=== PATIENT | female | born 1995 | race Caucasian/White ===

== ENCOUNTER 2021-07-20 06:21 | Inpatient (IN) ==
[2021-07-20] MEDS ORDERED: MEPERIDINE 50 MG/1 ML VIAL IV PRN (07:41)
[2021-07-20] MEDS ORDERED: LIDOCAINE 1% 50 ML VIAL MISC INJ ONE (07:41)
[2021-07-20] MEDS ORDERED: BUTORPHANOL 2 MG/ML VIAL IV PRN (07:41)
[2021-07-20] MEDS ORDERED: ONDANSETRON 4 MG/2 ML VIAL IV PRN ×2 (07:41→18:44)
[2021-07-20] MEDS ORDERED: LACTATED RINGERS 1,000 ML IV SCH (08:00)
[2021-07-20] MEDS ORDERED: OXYTOCIN/LR 20 UNIT/1,000 ML BAG IV SCH (08:00)
[2021-07-20 08:01] LABS: Basophils # 0.1 10*3/uL (0.0-0.2); Basophils % 0.5 % (0.0-0.8); Eosinophils # 0.1 10*3/uL (0.0-0.87); Eosinophils % 0.4 % (0.00-10.9); Hematocrit 39.3 VOL% (35.7-47.0); Hemoglobin 13.1 GM/DL (12.0-16.0); Immature Granulocytes % 2.7 %; Immature Granulocytes Absolute 0.34 #; Lymphocytes # 1.7 10*3/uL (1.4-4.0); Lymphocytes % 13.2 % (21.3-54.2); Mean Corpuscular HGB Conc 33.3 GM/DL (32-36); Mean Corpuscular Volume 87.3 FL (87-102); Mean Platelet Volume 10.8 FL (9.6-12.0); Monocytes % 7.3 % (1.7-12.7); Neutrophils % 75.9 % (38.7-73.9); Platelet Count 296 T/CUMM (130-400); Red Cell Distribution Width 14.8 % (9.3-17.3); White Blood Count 12.8 T/CUMM (4-12)
[2021-07-20 08:23] LABS: Albumin 2.8 G/DL (3.4-5.0); Bilirubin,Total 0.7 MG/DL (0.20-1.00); Calcium 9.1 MG/DL (8.5-10.1); Osmolality,Calculated 269.7 MOS/KG (273-304); Potassium 3.5 MMOL/L (3.5-5.1); Total Protein 7.1 G/DL (6.4-8.2)
[2021-07-20] MEDS ORDERED: hydrOXYzine HCL 25 MG/1 ML VIAL IM PRN (08:50)
[2021-07-20] MEDS ORDERED: LACTATED RINGERS 1,000 ML IV ONE (08:50)
[2021-07-20] MEDS ORDERED: PROMETHAZINE 25 MG/1 ML VIAL IM ONE (08:50)
[2021-07-20] MEDS ORDERED: diphenhydrAMINE 50 MG/1 ML VIAL IV PRN ×2 (08:50)
[2021-07-20] MEDS ORDERED: FAMOTIDINE 20 MG/2 ML VIAL IV ONE (08:50)
[2021-07-20] MEDS ORDERED: CITRIC ACID/SODIUM CITRATE 30 ML UDCUP PO ONE (08:50)
[2021-07-20] MEDS ORDERED: ePHEDrine 50 MG/ML VIAL IV PRN (08:50)
[2021-07-20] MEDS ORDERED: NALOXONE 0.4 MG/ML VIAL IV PRN (08:50)
[2021-07-20] MEDS: fentaNYL 2 MCG/ROPIV 0.2% EPID 100 ML EPIDURAL SCH ×2 (10:09→16:00)
[2021-07-20 13:13] LABS: Bilirubin,Urine Negative (Negative); Blood, Urine Negative (Negative); Glucose,Urine (UA) Negative (Negative); Ketones,Urine 5 mg/dL (Negative); Mucus,Urine Occasional /LPF (Occasional); Nitrite,Urine Negative (Negative); Protein,Urine Negative; RBC,Urine <1 /HPF (0-4); Squamous Epithelial Cell,Urine Occasional /HPF (0-10); Urine Appearance CLEAR (Clear); Urine Color Yellow (Yellow); Urine Specific Gravity 1.008 (1.001-1.035); Urine Urobilinogen < 2.0 EU/DL (0.2-1.0)
[2021-07-20] MEDS ORDERED: SODIUM CHLORIDE 0.9% 100 ML IV ONE (18:04)
[2021-07-20] MEDS ORDERED: miSOPROStoL 200 MCG TABLET ONE (18:04)
[2021-07-20] MEDS ORDERED: TRANEXAMIC ACID 1,000 MG/10 ML VIAL ONE (18:04)
[2021-07-20] MEDS ORDERED: CARBOPROST TROMETHAMINE 250 MCG/ML AMP IM ONE (18:05)
[2021-07-20] MEDS ORDERED: METHYLERGONOVINE 0.2 MG/1 ML AMP ONE (18:05)
[2021-07-20] MEDS ORDERED: RHO(D) IMMUNE GLOBULIN 300 MCG SYRINGE IM ONE (18:44)
[2021-07-20] MEDS ORDERED: LANOLIN 50% CREAM 0.3 OZ TUBE TOP PRN (18:44)
[2021-07-20] MEDS ORDERED: WITCH HAZEL PADS 100/JAR TOP PRN (18:44)
[2021-07-20] MEDS ORDERED: OXYTOCIN/LR 20 UNIT/1,000 ML BAG IV ONE (18:44)
[2021-07-20] MEDS ORDERED: MEASLES/MUMPS/RUBELLA VACCINE 0.5 ML VIAL SUBCUT ONE (18:44)
[2021-07-20] MEDS ORDERED: BISACODYL 10 MG SUPP RECTAL PRN (18:44)
[2021-07-20] MEDS ORDERED: DIPH/TET/ACEL PERT BOOSTER VACCINE 0.5 ML VIAL IM ONE (18:44)
[2021-07-20] MEDS ORDERED: ACETAMINOPHEN 325 MG TABLET PO PRN (18:44)
[2021-07-20] MEDS ORDERED: oxyCODONE/ACETAMINOPHEN 5-325 MG TABLET PO PRN (18:44)
[2021-07-20] MEDS ORDERED: HYDROCORTISONE 2.5% RECTAL CREAM 30 GM TUBE TOP PRN (18:44)
[2021-07-20] MEDS ORDERED: BENZOCAINE 20%/MENTHOL 0.5% SPRAY 56 GM CAN TOP PRN (18:44)
[2021-07-20 18:49] LABS: Cord Arterial Blood HCO3 16.6 MMOL/L
[2021-07-20 18:50] LABS: Cord Venous Blood HCO3 19.8 MMOL/L; Cord Venous Blood PCO2 43.4 MMHG; Cord Venous Blood PO2 21.2 MMHG
[2021-07-21 07:23] LABS: Basophils # 0.1 10*3/uL (0.0-0.2); Basophils % 0.5 % (0.0-0.8); Eosinophils # 0.1 10*3/uL (0.0-0.87); Eosinophils % 0.5 % (0.00-10.9); Hematocrit 36.3 VOL% (35.7-47.0); Hemoglobin 11.9 GM/DL (12.0-16.0); Immature Granulocytes % 1.6 %; Immature Granulocytes Absolute 0.26 #; Lymphocytes # 1.8 10*3/uL (1.4-4.0); Lymphocytes % 10.9 % (21.3-54.2); Mean Corpuscular HGB Conc 32.8 GM/DL (32-36); Mean Corpuscular Volume 88.8 FL (87-102); Mean Platelet Volume 10.5 FL (9.6-12.0); Monocytes % 6.7 % (1.7-12.7); Neutrophils % 79.8 % (38.7-73.9); Platelet Count 225 T/CUMM (130-400); Red Blood Count 4.09 MC/CUMM (3.8-5.5); Red Cell Distribution Width 14.8 % (9.3-17.3); White Blood Count 16.4 T/CUMM (4-12)
[2021-07-21] MEDS: DOCUSATE SODIUM 100 MG CAPSULE PO SCH ×3 (07:32→22:32)
[2021-07-21] MEDS: oxyCODONE/ACETAMINOPHEN 5-325 MG TABLET PO PRN ×2 (08:33→20:01)
[2021-07-21] MEDS: IBUPROFEN 800 MG TABLET PO PRN (08:35)
[2021-07-22] MEDS: IBUPROFEN 800 MG TABLET PO PRN ×2 (02:55→10:50)
[2021-07-22 11:28] VITALS: BP 110/68
[2021-07-22] MEDS: DOCUSATE SODIUM 100 MG CAPSULE PO SCH (12:42)
== END 2021-07-22 11:10 | disposition home or self-care (01) | DRG 807 ==
LOC: N.LD 06:21 → N.OB 21:50
PROVIDERS: ADMIT Obstetrics & Gynecology; ATTEND Obstetrics & Gynecology